=== PATIENT | male | born 1950 | race Caucasian/White ===

== ENCOUNTER 2022-05-23 14:43 | Outpatient (CLI) | payer MEDICARE ==
[2022-05-23 15:35] LABS: Hemoglobin 14.7 g/dL (13.5-17.5)
[2022-05-23 15:47] LABS: Anion Gap 13 mmol/L (10-20); BUN (Urea Nitrogen) 11 mg/dL (8.4-25.7); Calc. Creatinine Clearance 0 mL/min (70-130); Calcium 10.2 mg/dL (7.8-10.44); Carbon Dioxide 25 mmol/L (23-31); Chloride 104 mmol/L (98-107); Estimated GFR 98; Glucose 97 mg/dL (83-110); Potassium 4.3 mmol/L (3.5-5.1); Sodium 138 mmol/L (136-145)
== END 2022-05-23 14:44 | disposition home or self-care (01) ==
LOC: CSHLAB 14:43
PROVIDERS: ATTEND Otolaryngology Plastic Surgery within the Head & Neck
DX: Z01.818 Encounter for other preprocedural examination (principal); J32.4 Chronic pansinusitis
CPT/HCPCS: 80048; 85014; 85018; 93005; 93010

== ENCOUNTER 2022-05-28 08:37 | Day surgery (SDC) | payer MEDICARE ==
[2022-05-24 13:57] VITALS: BMI 24.1
[2022-05-28] MEDS ORDERED: Oxymetazoline HCl 0.05% ( 15 ML ) ONE (09:05)
[2022-05-28] MEDS ORDERED: oFLOXacin 0.3% Opth 5 ML BOT ONE (09:23)
[2022-05-28] MEDS ORDERED: CEFAZOLIN 1 GM VIAL ONE (10:04)
[2022-05-28] MEDS ORDERED: Lidocaine 1% w/Epinephrine 1:100K 30 ML VIAL ONE (10:04)
[2022-05-28] MEDS ORDERED: EPINEPHrine 1 MG/ML AMP ONE (10:04)
[2022-05-28] MEDS ORDERED: Ondansetron PF 4 MG/2 ML Vial ONE (10:06)
[2022-05-28] MEDS ORDERED: Fentanyl 100 MCG/2 ML VIAL ONE ×2 (10:06→11:56)
[2022-05-28] MEDS ORDERED: PROPOFOL 20 ML ONE (10:06)
[2022-05-28] MEDS ORDERED: Dexamethasone 4 mg/ml Vial ONE (10:06)
[2022-05-28] MEDS ORDERED: Lidocaine 1% PF 5 ML VIAL ONE (10:06)
[2022-05-28] MEDS ORDERED: Midazolam HCl 2 mg/2 ml Vial ONE (10:06)
[2022-05-28] MEDS ORDERED: Rocuronium Bromide 10 MG/ML (10ML VIAL) ONE (10:06)
[2022-05-28] MEDS ORDERED: ePHEDrine Sulfate 50 MG/10 ML VIAL ONE (10:28)
[2022-05-28] MEDS ORDERED: Triamcinolone 40 MG/ML VIAL ONE (11:12)
[2022-05-28] MEDS ORDERED: HYDROcodone/Acetaminophen 5/325 mg Tablet ONE (12:30)
== END 2022-05-28 13:10 | disposition home or self-care (01) ==
LOC: CSHSDC 08:37
PROVIDERS: ATTEND Otolaryngology Plastic Surgery within the Head & Neck
PROC: 099R8ZZ Drainage of Left Maxillary Sinus, Via Natural or Artificial Opening Endoscopic (ICD-10-PCS; principal; 2022-05-28)
PROC: 8E09XBZ Computer Assisted Procedure of Head and Neck Region (ICD-10-PCS; 2022-05-28)
DX: J32.4 Chronic pansinusitis (principal); J33.8 Other polyp of sinus; J34.89 Other specified disorders of nose and nasal sinuses; I10 Essential (primary) hypertension; Z85.46 Personal history of malignant neoplasm of prostate; Z79.899 Other long term (current) drug therapy; Z87.891 Personal history of nicotine dependence; Z98.890 Other specified postprocedural states
CPT/HCPCS: 88304; J0171; J0690; J1100; J2250; J2405; J2704; J3010; J3301